=== PATIENT | female | born 1985 | race Caucasian/White ===

== ENCOUNTER 2020-06-25 17:27 | Emergency (ER) | payer MEDICAID ==
--- NOTE | 2020-06-25 17:35 | NUR ---
PRIOR TO TRIAGE AND PRIOR TO ERP EVAL PATIENT ASKING TO LEAVE. WITH ASSESSMENT SHE IS COHERENT AND UNDERSTANDS THE RISK OF LEAVING DESPITE BLOOD PRESSURE OF 210/109. SHE DENIES CP/SOB. [facility] PLACED PIV REMOVED AND PATIENT WALKED TO DISCHARGE DESK
== END 2020-06-26 05:26 | disposition left against medical advice (07) ==
LOC: ED 17:30
DX: I10 Essential (primary) hypertension (principal); Z53.21 Procedure and treatment not carried out due to patient leaving prior to being seen by health care provider